=== PATIENT | female | born 1985 | race Two or more races ===

== ENCOUNTER 2021-09-23 00:24 | Emergency (ER) | payer OTHER ==
[~2021-09-23] VITALS: Ht 160 cm; Wt 76.0 kg
[2021-09-23] MEDS ORDERED: IBUP-2070 PO (00:30)
[2021-09-23] MEDS ORDERED: BUPIVACAINE HCL/PF 0.25% 10 ML VIAL SQ ONE (00:45)
[2021-09-23] MEDS ORDERED: POVIDONE-IODINE 10% 120 ML SOLUTION TP ONE (00:45)
[2021-09-23 01:50] VITALS: BP 124/85
== END 2021-09-23 04:39 | disposition home or self-care (01) ==
LOC: EMS 00:26
DX: S60.011A Contusion of right thumb without damage to nail, initial encounter (principal); W23.0XXA Caught, crushed, jammed, or pinched between moving objects, initial encounter; Y93.89 Activity, other specified; Y92.89 Other specified places as the place of occurrence of the external cause; Y99.8 Other external cause status
CPT/HCPCS: 11740; 73140; 99284; J3490